=== PATIENT | male | born 1960 | race African-American/Black ===

== ENCOUNTER 2021-05-28 16:17 | Emergency (ER) | payer BC, OTHER ==
[2021-05-28 16:22] VITALS: TEMP 97; BMI 30.4
[2021-05-28] MEDS ORDERED: ACETAMINOPHEN 500 MG TABLET (FP) PO ONE (17:43)
[2021-05-28] MEDS ORDERED: ACETAMINOPHEN 325 MG TABLET (FP) ONE (17:49)
[2021-05-28 18:24] LABS: BASO % 0.6 % (0-2.0); EOS % 0.4 % (0-4.5); HEMATOCRIT 44.6 % (35.4-49); HEMOGLOBIN 14.8 GM/dL (11.7-16.9); LYMPH % 12.7 % (8-40); MCH 31.8 pg (25.7-33.7); MCHC 33.2 g/dl (32.0-35.9); MEAN CELL VOLUME 95.7 fl (80-96); MEAN PLT VOLUME 9.3 fl (7.5-11.1); MONO % 8.1 % (3.8-10.2); NEUT % 78.2 % (42.8-82.8); PLATELET COUNT 158 10^3/uL (134-434); RBC 4.66 M/mm3 (4.00-5.60); RDW 13.2 % (11.9-15.9); WHITE BLOOD COUNT 8.1 K/mm3 (4.0-10.0)
[2021-05-28 18:39] VITALS: BP 132/72; PULSE 69
[2021-05-28 18:46] LABS: BLOOD UREA NITROGEN 13.4 mg/dL (7-18); CALCIUM 8.6 mg/dL (8.5-10.1)
[2021-05-28 18:50] LABS: BILIRUBIN,TOTAL 0.3 mg/dL (0.2-1); TOT PROT 7.9 g/dl (6.4-8.2)
== END 2021-05-28 21:43 | disposition home or self-care (01) ==
LOC: JER 16:17
DX: R07.9 Chest pain, unspecified (principal); M54.50 Low back pain, unspecified
CPT/HCPCS: 36415; 71046-TC-FY; 71275-TC; 74174-TC; 80053; 84484; 85025; 93005; 93010; 99285-25; Q9967

== ENCOUNTER 2022-07-16 14:42 | Emergency (ER) | payer BC, OTHER ==
[2022-07-16 14:52] VITALS: BP 155/56; PULSE 102; RESP 18; TEMP 99.3; BMI 30.4
== END 2022-07-16 17:53 | disposition home or self-care (01) ==
LOC: JER 14:42 → JERFT 14:42
DX: J20.9 Acute bronchitis, unspecified (principal); H10.31 Unspecified acute conjunctivitis, right eye; Z20.822 Contact with and (suspected) exposure to COVID-19
CPT/HCPCS: 0241U-QW; 71046-TC-FY; 99284-25